=== PATIENT | female | born 2000 | race Caucasian/White ===

== ENCOUNTER 2018-07-01 17:00 | Emergency (ER) | payer MEDICAID ==
[~2018-07-01] VITALS: Ht 162.6 cm; Wt 70.1 kg
[2018-07-01 17:18] VITALS: Ht 162.6 cm; Wt 70.1 kg
[2018-07-01 18:43] VITALS: BP 131/98
== END 2018-07-01 18:43 | disposition home or self-care (01) ==
LOC: ED 17:00
DX: H60.11 Cellulitis of right external ear (principal); Z88.0 Allergy status to penicillin; Z88.1 Allergy status to other antibiotic agents